=== PATIENT | male | born 1960 | race Caucasian/White ===

== ENCOUNTER 2022-04-15 01:47 | Emergency (ER) | payer BC, SELFPAY ==
[2022-04-15 01:57] VITALS: BP 160/98; PULSE 60; RESP 16; TEMP 36.4; O2SAT 99
[2022-04-15] MEDS: ACETAMINOPHEN 500 MG TABLET 1000 MG PO (02:28)
--- NOTE | 2022-04-15 02:56 | ED.GENADULT ---
HPI - General Adult General Chief complaint: Extremity Pain/Injury, Upper Stated complaint: pain right wrist, fingers cold and numb + swelling Time Seen by Provider: 04/15/22 02:06 Source: patient Mode of arrival: ambulatory Limitations: no limitations History of Present Illness HPI narrative: 62-year-old male with a notable history of hyperlipidemia presents to the emergency department with a 1 hour history of significant pain in the right wrist and hands with a 5 hour history of tingling in the right hand. Patient reports that the tingling started, also intermittently described as numbness during the interview while he was traveling home on a plane from [facility]. He had been their skiing with family for the last several days, very active. No trauma or injury. No other neurological changes like difficulty speaking, confusion, motor weakness. He did have to keep his shoulders very compress during the plane trip and thought that this was the etiology of the numbness. As he got off the plane and got his luggage, the numbness did improve. He started to have pain when he went to bed about 10 30. Pain located mainly right on the carpal tunnel, radiating into the fingers. He is unsure of the thumb was spared or not. He tried sleeping with his arm hanging off the side of the bed, hoping that this would improve his symptoms. He awoke with pain about 90 minutes later and noted that the hand seems swollen from being in a downward position and was slightly purple. Therefore a comes to the emergency department. Once here of course the swelling has improved markedly and the purple hue has disappeared, not unexpected since that is no longer hanging off the bed. He still does endorse some numbness and still has pain. He denies any prior history of similar symptoms. No prior diagnosis of carpal tunnel syndrome. No motor weakness whatsoever. Opposite hand is unaffected. He tried taking some ibuprofen at bedtime with no significant improvement in symptoms. Past medical history notable for hyperlipidemia, no recent surgeries. Domestic travel recently only, no unusual illness exposures. Social habits reviewed from nursing intake. ROS is otherwise negative for other generalized, neurological, musculoskeletal, skin or cardiovascular concerns. Related Data Home Medications Medication Instructions Recorded Confirmed rosuvastatin 10 mg tablet mg 04/15/22 Allergies Allergy/AdvReac Type Severity Reaction Status Date / Time No Known Drug Allergies Allergy Verified 04/15/22 01:59 [facility] Medical History Hypercholesteremia Social History Smoking Status: Never smoker Do you use any of these nicotine containing products: None How often do you have a drink containing alcohol: 2-3 times a week AUDIT-C Alcohol total score: 3 Non-prescribed substance use: denies use Exam Const: Vital Signs, click to edit/add: Vital Signs - 24 hr 04/15/22 01:57 Temperature 97.6 F Pulse Rate [Left P ulse Oximeter] 60 Respiratory Rate 16 Blood Pressure [Le ft Upper Arm] 160/98 H Pulse Oximetry 99 Oxygen Delivery Me thod Room Air Documenting provider has reviewed patient's vital signs: yes Common normals: no apparent distress General appearance: cooperative, comfortable and well kempt Other: Good historian, cooperative HENMT: Common normals: normocephalic and head/scalp atraumatic Head and scalp: normocephalic and atraumatic Face and sinus: normal facial exam Mouth: oral and palatal mucosa normal Eye: Common normals: PERRL, EOMs intact bilaterally and conjunctivae normal Conjunctiva: conjunctiva(e) normal Pupil: PERRL Neck & C-Spine: Common normals: full ROM and no lymphadenopathy Resp: Common normals: normal respiratory effort and clear to auscultation bilaterally Effort & inspection: able to speak in complete sentences Auscultation: clear to auscultation bilaterally Cardio: Common normals: regular rate, regular rhythm, S1 normal heart sound, S2 normal heart sound, no murmurs and peripheral pulses 2+ throughout Rate: regular rate Rhythm: regular rhythm Heart sounds: S1 normal and S2 normal Peripheral pulses: pulses 2+ throughout Extremity: Other: Wrist normal in appearance, normal associate dean strength in hand on left. Right shoulder with normal range of motion, right elbow with normal range of motion. Right wrist with normal range of motion but exquisite tenderness over palpation of the carpal tunnel only. Remainder of wrist exam shows normal flexion extension, no swelling. The hand has some very mild swelling but no discoloration. Capillary refill is normal. 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 He has normal abduction and adduction of all fingers, normal opposition extension and flexion of the thumb. I cannot elicit a decreased sensation in any particular area. He has a very strongly positive Phalen test which does reproduce the severe pain that he was having earlier in the night. Marked tenderness with tapping over the carpal tunnel and with compression over the carpal tunnel as well, worsening the exact symptoms that he is describing. Neuro: Motor exam: strength 5/5 throughout, no tremor noted and no movement abnormalities noted Psych: Appearance: well kempt Attitude: engaged Activity/motor behavior: appropriate eye contact Attention/concentration: attention grossly intact Memory/cognition: memory grossly intact Insight: insight good Judgement: judgment good Skin: Common normals: no rashes or lesions noted General skin exam: no rashes or lesions noted Course Vital Signs Vital signs: Initial Vital Signs Temperature 97.6 F 04/15/22 01:57 Temperature Source Temporal Artery Scan 04/15/22 01:57 Pulse Rate 60 04/15/22 01:57 Pulse Rhythm 04/15/22 01:57 Respiratory Rate 16 04/15/22 01:57 Blood Pressure 160/98 H 04/15/22 01:57 Blood Pressure Mean 118 04/15/22 01:57 Blood Pressure Position Sitting 04/15/22 01:57 Pulse Oximetry 99 04/15/22 01:57 Oxygen Delivery Method 04/15/22 01:57 Vital Signs Temperature 97.6 F 04/15/22 01:57 Pulse Rate 60 04/15/22 01:57 Respiratory Rate 16 04/15/22 01:57 Blood Pressure 160/98 H 04/15/22 01:57 Pulse Oximetry 99 04/15/22 01:57 Oxygen Delivery Method 04/15/22 01:57 Temperature 97.6 F 04/15/22 01:57 Pulse Rate 60 04/15/22 01:57 Respiratory Rate 16 04/15/22 01:57 Blood Pressure 160/98 H 04/15/22 01:57 Pulse Oximetry 99 04/15/22 01:57 Oxygen Delivery Method 04/15/22 01:57 Medical Decision Making MDM Narrative Medical decision making narrative: Differential diagnosis including CVA, TIA, nerve compression, radial nerve palsy from shoulder compression but most likely etiology is carpal tunnel syndrome. In office testing is extremely positive, do not recommend further neurological workup at this time S pain control with wrist splint, should wear at night for the next 7 days. Ibuprofen 600 mg every 6 hours. Nerve pain is typically worse at night, okay to use melatonin and/or Tylenol p.m. to help sleep. Not improving in 3 days, would recommend a prednisone burst. If not improving after prednisone, would recommend EMG and further specialty consult. She was agreeable to this plan of care, wrist splint given and Tylenol given prior to discharge. Discharge Plan Discharge Clinical Impression: Acute carpal tunnel syndrome of right wrist Patient Disposition: Home, Self-Care Condition: Stable Instructions: Paresthesia (ED) Additional Instructions: Your symptoms are classic for nerve compression, likely carpal tunnel surgery. Your symptoms are not consistent with a stroke. We were able to make them worse with the typical maneuvers that worsened carpal tunnel syndrome, confirming the diagnosis. I do suspect that skiing and heavy compression on the airplane were likely the factors that have made this worse. Her pain tends to hurt more at night, not during the aggravating activity. It often feels cold or numb but is not a restricted blood flow but rather impingement of the nerve in the close space as we discussed. The need to sleep in a wrist brace for the next week to help alleviate pressure on the nerve. It is okay to do all of your usual activities but you will notice worsening by using vibrating tools, heavy gripping and overuse of your forearm muscles. For pain, take ibuprofen 600 mg every 6 hours and Tylenol 1000 mg every 6 hours. You may alternate between the 2 every 3 hours. It is okay to use sleep aids at night such as melatonin or Benadryl. Tylenol p.m. is okay as well. If symptoms are not improving in 3 days, please make a follow-up appointment with your primary care doctor to discuss a prednisone burst and or additional workup. Rarely this needs an EMG and surgical consultation to fix. Activity Level: Activity as Tolerated Discharge Diet: Regular Prescriptions: No Action rosuvastatin 10 mg tablet Label Comments: TAKE 1 TABLET (10 MG) BY MOUTH AT BEDTIME. Stand Alone Forms: [facility] Info Instructions
== END 2022-04-15 02:34 | disposition home or self-care (01) ==
LOC: ED 02:31
PROVIDERS: Emergency Provider Family Medicine; PCP Surgery
DX: G56.01 Carpal tunnel syndrome, right upper limb (principal)
CPT/HCPCS: 29125; 99282; A9270